=== PATIENT | female | born 1945 | race Caucasian/White ===

== ENCOUNTER 2016-10-29 07:00 | Inpatient (IN) | payer OTHER, MEDICARE ==
[~2016-10-29] VITALS: Ht 149.9 cm; Wt 63.2 kg
[2016-12-03] MEDS ORDERED: WELLBUTRIN XL300 M2 PO (06:54)
[2016-12-03] MEDS ORDERED: LEXAPRO10 M1 PO (06:55)
[2016-12-03] MEDS ORDERED: vitamin b12 PO (06:56)
[2016-12-03] MEDS ORDERED: VITAMIN D1000 UNIT PO (06:56)
--- NOTE | 2016-12-03 15:03 | Admission Core Measures ---
Admission Meds I reviewed the following Meds: Current Medications Sig/Parveen Start time Last Medication Dose Stop Time Status Admin Cefazolin Sodium 1,000 MG Q8 12/03 2100 UNVr (Kefzol-Ancef Inj) 12/03 2200 Docusate Sodium 100 MG BID 12/03 220 UNVr (Colace) Nicotine 7 MG DAILY 12/04 1000 UNVr (Nicotine Cq) Omeprazole 20 MG DAILY AC 12/04 0700 UNVr (Prilosec) Ondansetron HCl 4 MG Q6P PRN 12/03 1500 UNVr (Zofran) Sodium Chloride 1,000 ML Q13H 12/03 1500 UNVr (Normal Saline 0.9%) Acute Coronary Syndrome Inclusion Criteria ACS Diagnosis No Inpatient Core Measures LDL Reminder: If No, please order W/I first 24hr of stay Congestive Heart Failure Inclusion Criteria CHF Diagnosis No Cerebrovascular accident Inclusion Criteria CVA/TIA Diagnosis No Inpatient Core Measures Bedside Swallow Eval Reminder: If BSE failed, place ST order Antithrombotic Reminder: Order Antithrombotic Medication by end of day 2 Antithrombotic Reminder: Document Reason Antithrombotic Not ordered by end of day 2 AFIB/Flutter Reminder: If Present, add to problem list AFIB/Flutter Reminder: Order Anticoag Medication for pts with AFIB/Flutter Atherosclerosis Reminder: If Present, add to problem list LDL Reminder: If No, please order W/I first 24hr of stay PT Order Reminder: If No, please order Venous thromboembolism Inpatient Core Measures VTE Risk Factors: Age > 40, Smoking VTE Prophylaxis Ordered Inpt [facility] prophylaxis d/t No contraindications No VTE Pharm Prophylaxis d/t No contraindications Inclusion Criteria - Per Current guidelines, there needs to be overlap - treatment for the first 5 days of Warfarin therapy. - Parenteral Anticoagulation (IV or SC) needs to be - given along with Warfarin therapy. VTE Diagnosis No VTE Type NONE VTE Confirmed by (Test) NONE Problem List As ranked by this Provider includes Assessment & Plan 1. Lung nodules HOME MEDS Home Med List Bupropion HCl (Wellbutrin XL) 300 MG TAB.ER.24H 1 TAB PO DAILY unknown ( Reported) Cholecalciferol (Vitamin D3) (Vitamin D) 1,000 UNIT TABLET 1 TAB PO DAILY SUPPLEMENT (Reported) Escitalopram Oxalate (Lexapro) 10 MG TABLET 1 TAB PO DAILY unknown (Reported) [vitamin b12] 1 TAB PO D UNKNOWN (Reported)
--- NOTE | 2016-12-03 15:23 | Cons- CRCU ---
DOTNELI 12/03/16 1521: General Information and HPI Consulting Request Date of Consult: 12/03/16 Requested By: Dr. Magaña Reason for Consult: S/p Electromagnetic Navigation Bronchoscopy with atypical cells both RUL and RLL both suspicious for adenocarcinoma Source of Information: old records Exam Limitations: clinical condition History of Present Illness: 71 y/o female with a 40 pack year smoking hsitory, anxiety, depression, GERD admitted to the ICU s/p right thoracotomy with upper and lower lobe wedge resection for adenocarcinoma of lung on 12/03/16. She F/U with Dr. Thomson as an outpatient. Her last PFT's were in 05/2016 which showed DLCO 64 and FEV1 1.23L. A CT done on 08/05/16 reveals multiple mixed groundglass and solid parenchymal opacities. The majority of these opacities were stable from prior exam. However, the dominant mass in the right upper lobe has increased progressively in size. There are also multiple other bilateral groundglass, subsolid and solid pulmonary nodules remain stable. No adenopathy. Right hilar calcified lymph nodes suggest underlying granulomatous disease. Mild coronary artery calcifications. Cholelithiasis and diffuse bone demineralization. A PET CT done on the 08/26/16 showed mildly increased FDG activity in a medial RLL nodule is suspicious for malignancy, RUL shows only weak FDG activity. No additional abnormalities suspicious for metastatic or other malignant lesions were noted. According to office notes, patient was previously on BREO and had to stop secondary to throat irritation. She is curerntly a little drowsy, but arousable and c/o nausea. Denies fever, chills, but does admit to pain at the site of surgery. Denies headache, abdominal pain. CRCU consult is beging requested to monitor her respiratory status post surgery. Allergies/Medications Allergies: Coded Allergies: Penicillins (HIVES 11/14/16) Home Med List: Esomeprazole (Nexium) 40 MG CAPSULE. 1 CAP PO DAILY reflux (Reported) Current Medications: Current Medications Sig/Parveen Start time Last Medication Dose Route Stop Time Status Admin Bupropion HCl 300 MG DAILY 12/04 1000 UNVr PO Cefazolin Sodium 1,000 MG Q8 12/03 2100 AC IV 12/03 2200 Docusate Sodium 100 MG BID 12/03 2199 AC PO Escitalopram Oxalate 10 MG DAILY 12/04 1000 UNVr PO Hydromorphone HCl 50 MG Q24H PRN 12/03 1515 AC Sodium Chloride 45 ML IV Nicotine 7 MG DAILY 12/04 1000 AC TOP Omeprazole 20 MG DAILY AC 12/04 0700 AC PO Ondansetron HCl 4 MG Q6P PRN 12/03 1500 AC IV Sodium Chloride 1,000 ML Q13H 12/03 1500 AC IV Review of Systems Review of Systems Constitutional: Denies: chills, fever. EENTM: Denies: visual changes. Cardiovascular: Reports: chest pain. Denies: orthopena, palpitations, peripheral edema. Respiratory: Denies: cough, hemoptysis, short of breath, sputum production, wheezing. GI: Reports: nausea. Denies: abdominal pain, constipation, diarrhea, vomiting. Genitourinary: Reports: no symptoms. Neurological/Psychological: Denies: headache, numbness, tingling, tremors. Past History Medical History EENT: BILATERAL HEARING AID Gastrointestinal: GERD, CHOLELETIHASIS Psychiatric: anxiety, depression Surgical History Surgical History: RIGHT FATTY TUMOR REMOVED FROM RIGHT BREAST Family History Relations & Conditions If Any: FATHER FH: throat cancer Psychosocial History Smoking Status: Former Smoker (40 pack year) Employment History Employment: Unemployed Exam & Diagnostic Data Last 24 Hrs of Vital Signs/I&O Vital Signs Date Time Temp Pulse Resp B/P Pulse O2 O2 Flow FiO2 Ox Delivery Rate 12/03 1700 98.5 78 20 102/54 98 Nasal 4.0L Cannula Physical Exam General Appearance: awake, drowsy but arousable nad oriented x3 Head: atraumatic, normal appearance Eyes: Bilateral: PERRL, EOMI. Ears, Nose, Throat: hard of hearing bilatrally L>>R Neck: normal inspection, supple Respiratory: decreased breath sounds (bilaterally), has a chest drain in place with blood discharge and to low wall suction Cardiovascular: regular rate/rhythm, has wound dressing in place on the right side. Chest tube drain in place. Peripheral Pulses: 2+ radial (R), 2+ radial (L), 2+ femoral (R), 2+ femoral (L) Gastrointestinal: soft, non-tender, hypoactive bowel sounds Extremities: no edema Last 48 Hrs of Labs/Ney: None Diagnostic Data CXR Results SERVICE DATE: 12/03/16-1450 EXAM TYPE: RAD - XRY-PORTABLE CHEST XRAY EXAMINATION: XR PORTABLE CHEST CLINICAL INFORMATION: Status post right lung thoracotomy. Evaluate for pneumothorax. COMPARISON: 09/17/2016 TECHNIQUE: Portable view of the chest was obtained. FINDINGS: Cardiac silhouette is within normal limits. A right-sided chest tube is noted with tip projecting at the right lung apex. No definite pneumothorax is identified. New opacity is noted within the right upper lobe adjacent to the superior mediastinum, possibly related to recent surgery. There is probable underlying emphysema. No definite pleural effusions. No acute osseous abnormality. Minimal subcutaneous emphysema noted along the right lateral chest. IMPRESSION: Right-sided chest tube with tip projecting at the right lung apex. No definite pneumothorax identified. New, medial right upper lung zone opacity. Assessment/Plan Impression/Plan: 71-year-old woman who is admitted to the ICU post right lung thoracotomy and resection of right upper and right lower lobe lesions that were suspicious for adenocarcinoma. Assessment and Plan: Respiratory - Adenocarcioma s/p resection RUL/RLL, mediastinal lymph node resection, was not a candidate for pneumonectomy - Currently saturating 98% on 3.0 liters of O2 via nasal cannula - Incentive spirometry - Follow post thoracotomy protocol. - Chest tube draining blood, about 10mls, to low wall suction as per thoracic surgery recs - F/U pathology - Incentive spirometry - TRC/ Nebs - Optimize pain control - Post op CXR does not show evidence of Pneumothorax and chest tube drain is in place. - Continue to monitor for signs of respiratory distress - ID - No active signs of infection for now - Continue to monitor CBC, vitals - Cardiovascular - Currently stable. - Hematology - No active issues - ALimentary - Start her on ice chips and advance to clears as per thoracic surgery recs. # Incidental finding of cholilithiasis - No signs of active inflammation/ infection at this point - Neurological - Anxiety - Consider Ativan 0.5mg Q6 PRN PO if she gets anxious. - DVT - On ALPs - Code status - Full Code. Consult Acknowledgment - Thank you for your consult request. STEVO THOMSON MD 12/03/16 1532: Assessment/Plan Other Findings/Comments: Stevo Rivera M.D. have examined this patient, reviewed available EMR data, personally reviewed images, discussed with resident/PA/INSURANCE CONSULTANT, discussed management plan with housestaff and nursing staff, discussed managment plan all of healthcare providers, discussed management plan with patient and/or family, agreed with resident/PA/INSURANCE CONSULTANT. The past history and parts of the chart have been autopopulated. Gen - recovering from anesthesia HEENT - ncat/hearing aides/hearing loss chronic CVS - s1, s2 Lungs - some transmitted rhonchi bilaterally Abd - soft, bs+ Ext - without edema Impression 71-year-old woman admitted to the ICU post right lung thoracotomy and resection of right upper and right lower lobe lesions that were suspicious for adenocarcinoma. [id number] history of cigarette smoking. Sequence of events: S/p Electromagnetic Navigation Bronchoscopy. Atypical cells both RUL and RLL both suspicious for adenocarcinoma. PET results 08/26/16 -Mildly increased FDG activity in a medial RLL nodule is suspicious for malignancy -RUL shows only weak FDG activity. Additional opacities o the CT images show no abnormal FDG activity -No additional abnormalities suspicious for metastatic or other malignant lesions are noted. -Cholelithiasis. -Vascular calcifications including coronary. CT 08/05/16 -Multiple mixed groundglass and solid parenchymal opacities are again seen in the lungs as discussed above. The majority of these opacities remain stable from prior exam. However, the dominant mass in the right upper lobe has increased progressively in size. -Multiple other bilateral groundglass, subsolid and solid pulmonary nodules remain stable. -No adenopathy. Right hilar calcified lymph nodes suggest underlying granulomatous disease. -Mild coronary artery calcifications. -Cholelithiasis. -Diffuse bone demineralization Previously on BREO and had to stop secondary to throat irritation. PFTs reviewed 05/2016 DLCO 64 and FEV1 1.23L. Worked at [employer] in the past. Significant smoking history. Smoked 1PPD since age 18. Father from throat cancer. Patient seen and examined in the PACU post surgery and is awake and comfortable, however still recovering from anesthesia. Normal weight and appetite. History of hearing loss and significant anxiety. Sees Dr. Rosales for sinus issues and ear issues. Has been having a dry cough with clearing, no phlegm. Some difficulty swallowing pills, no obvious aspiration, GERD. Plan - s/p resection RUL/RLL, mediastinal lymph node resection, was not a candidate for pneumonectomy - post thoracotomy protocol - f/u pathology - TRC/Nebs - incentive spirometry - chest tube drainage per cardiothoracic surgery - pain control - monitor bowel function and ins/outs - patient has anxiety and anxioloysis maybe necessary - DVT prophylaxis at all times TTS 40 minutes Consult Acknowledgment - Thank you for your consult request.
--- NOTE | 2016-12-03 15:33 | RADIOLOGY REPORT ---
EXAMINATION: XR PORTABLE CHEST CLINICAL INFORMATION: Status post right lung thoracotomy. Evaluate for pneumothorax. COMPARISON: 09/17/2016 TECHNIQUE: Portable view of the chest was obtained. FINDINGS: Cardiac silhouette is within normal limits. A right-sided chest tube is noted with tip projecting at the right lung apex. No definite pneumothorax is identified. New opacity is noted within the right upper lobe adjacent to the superior mediastinum, possibly related to recent surgery. There is probable underlying emphysema. No definite pleural effusions. No acute osseous abnormality. Minimal subcutaneous emphysema noted along the right lateral chest. IMPRESSION: Right-sided chest tube with tip projecting at the right lung apex. No definite pneumothorax identified. New, medial right upper lung zone opacity.
[2016-12-03 17:00] VITALS: BP 102/54
--- NOTE | 2016-12-03 17:00 | PN- Thoracic Surgery ---
Subjective Subjective: The patient was seen this evening postoperatively. She reports her pain is under adequate control and is liquids the current time. She denies any chest pain, difficulty breathing, or palpitations. Objective Vital Signs and I&Os Vital signs: Blood pressure 112/74, pulse 76, temperature 98.7, O2 saturation 97 % on 3 L via nasal cannula Postoperative chest x-ray: Shows no pneumothorax with a chest tube in adequate position Physical Exam: Gen.: Sleepy but easily arousable and in no obvious distress Skin: Warm and dry Chest: Incisional tenderness, equal expansion, surgical dressing is blood-tinged but otherwise intact, chest tube 1 to Pleur-evac suction without a air leak Cardiac: S1-S2 regular Pulmonary: Bilateral breath sounds are equal and diminished at bases with transmitted chest tube sounds in the right chest. Extremities: Bilateral lower extremities are warm without calf tenderness or significant edema. Assessment/Plan Assessment/Plan Assessment: 71-year-old female status post right thoracotomy with upper and lower lobe wedge resection. Postoperatively the patient is progressing as expected, her pain is under adequate control, and she is oxygenating adequately on minimal oxygen requirements. Plan: Follow-up a.m. laboratory results and chest x-ray. Continue IV fluids and clear liquid diet tonight Advance diet in the morning if stable and Hep-Lock IV fluids Resume all medications GI and DVT prophylaxis Continue current pain regiment Total respiratory care per post thoracotomy protocol Follow-up pulmonary critical care recommendations 2 doses of postoperative prophylactic antibiotics Core Measures/Miscellaneous Venous Thromboembolism VTE Risk Factors: Age > 40, Smoking, Surgery VTE Contraindications: No Contraindications VTE Prophylaxis Ordered Inpt: Mech & Pharm VTE Diagnosis: No VTE Type: NONE VTE Confirmed by (Test): NONE Beta Vani Is Beta Vani a Home Med? No Antibiotics Is Patient on Antibiotics? Yes If Yes: prophylaxis
--- NOTE | 2016-12-03 17:28 | Admission Certification ---
Admission Certification Certification Statement - As attending physician, I certify that at the time of - admission, based on clinical presentation, severity of - symptoms, need for further diagnostic testing and - therapeutic interventions, and risk of adverse outcomes - without in-hospital treatment, in my clinical assessment, - this patient requires an acute hospital stay for a minimum - of two nights or longer. I have also considered psychsocial - factors such as support system, advanced age, financial - issues, cognitive issues, and failed out-patient treatments, - past re-admission history, safety of patient, and lack of - compliance as applicable. Specific rationale supporting this admission is: Christopher. chest surgery requiring intensive care unit stay
--- NOTE | 2016-12-03 17:31 | Operative Report ---
Operative/Inv Procedure Report Surgery Date: 12/03/16 Name of Procedure: Right thoracotomy with wedge resection right upper lobe and right lower lobe lung nodules. Mediastinal lymph node dissection Pre-Operative Diagnosis: Right upper and right lower lobe lung nodule suspicious for carcinoma Post-Operative Diagnosis: Same Estimated Blood Loss: less than 50ml Surgeon/Toll Bridge Attendant: MICHAEL ALVES,ADRIANO Brown JR Anesthesia: general endotracheal tube Operative/Procedure Note Note: After placement of monitoring lines and induction of general anesthesia the double-lumen endotracheal tube was properly positioned with fiberoptic bronchoscopy. The patient was placed in the left lateral decubitus position and her right chest was prepped and draped in a sterile fashion. A posterior lateral thoracotomy incision was made and the chest was entered through the fifth intercostal space. There was complete development of all the fissures with clear separation of all 3 lobes. The upper lobe lesion along the posterior segment of the lung was resected with multiple applications of the Endo RANDOLPH stapler and sent for permanent histology. Similarly the lower lobe nodule which was adjacent to the pulmonary vein was resected and sent for permanent histology. The inferior pulmonary ligament was mobilized and lymph nodes were obtained from levels 47 and 9 and sent for permanent histology. Long-acting Marcaine blocks were done intercostal. The suture lines were sprayed with Pro seal sealant. The chest was drained with a straight 28 Tajik chest tube. The ribs were reapproximated with pericostal suture and the lung was reinsufflated under direct vision. Incision was then closed anatomically with running Vicryl suture followed by running Vicryl subcuticular suture. The patient tolerated procedure well and was brought to the recovery room awake and extubated in stable condition.
[2016-12-03] MEDS ORDERED: NEXIUM40 M1 PO (17:34)
[2016-12-03 18:38] VITALS: BP 106/61
[2016-12-03 20:00] VITALS: BP 102/62
[2016-12-03 22:00] VITALS: BP 119/71
--- NOTE | 2016-12-03 22:16 | NUR ---
PT URINE OUTPUT FROM [id number] 150ML. IVF INFUSING A 75ML/HR, PT TAKING IN PO BUT C/O BOUTS OF NAUSEA. PT ALSO COMPLAINING OF SEVERE PAIN, EDUCATED PT AGAIN ON HOW TO USE HEALTH CONSULTANT PUMP. PT ONLY HIT BUTTON ONCE IN 2 HOURS FOR TOTAL OF 0.1MG. PT VERBALIZED UNDERSTANDING. NOTIFIED NEVAEH GARCIA #[id number] OF ABOVE. ADDITIONAL TORADOL ORDERED PRN.
[2016-12-04] VITALS: BP 104/64
[2016-12-04 02:00] VITALS: BP 100/57
[2016-12-04 03:49] LABS: ABSOLUTE BASOPHIL COUNT 0 /CUMM (0.0-0.2); ABSOLUTE EOSINOPHIL COUNT 0 /CUMM (0.0-0.7); ABSOLUTE GRANULOCYTE CT 12.1 /CUMM (1.4-6.5); ABSOLUTE LYMPH COUNT 0.5 /CUMM (1.2-3.4); ABSOLUTE MONOCYTE COUNT 0.3 /CUMM (0.10-0.60); BASOPHIL % 0.1 % (0.0-2.0); EOSINOPHIL % 0 % (0-5); GRANULOCYTE % 93.2 % (42.2-75.2); MEAN CORPUSCULAR HGB 29.5 PG (27.0-31.0); MEAN CORPUSCULAR HGB CONC 33.5 G/DL (33.0-37.0); MEAN CORPUSCULAR VOLUME 88.1 FL (81.0-99.0); MEAN PLATELET VOLUME 8.4 FL (7.4-10.4); PLATELET COUNT 325 /CUMM (130-400); RBC DISTRIBUTION WIDTH 14.1 % (11.5-14.5); RED BLOOD CELL CT 4.42 /CUMM (4.20-5.40); WHITE BLOOD CELL COUNT 12.9 /CUMM (4.8-10.8)
[2016-12-04 04:00] VITALS: BP 112/52
--- NOTE | 2016-12-04 05:31 | PN- Thoracic Surgery ---
Subjective Subjective: The patient seen this morning postoperatively day #1. She is complaining of significant pain from around the chest tube. She has no other complaints at the current time he denies any chest pain or difficulty breathing. Objective Vital Signs and I&Os Vital Signs Date Time Temp Pulse Resp B/P Pulse O2 O2 Flow FiO2 Ox Delivery Rate 12/040 98.4 84 17 112/52 12/04 0400 97 Nasal 2.0L Cannula 12/04 0200 97.2 76 21 100/57 12/04 0040 96 Nasal 2.0L Cannula 12/04 0000 97 Nasal 2.0L Cannula 12/04 0000 97.6 79 24 104/64 97 Nasal 2.0L Cannula 12/03 220 98.0 74 23 119/71 12/03 1999 98.0 73 22 102/62 12/03 1999 98 Nasal 3.0L Cannula 12/03 1908 Nasal 3.0L Cannula 12/03 1838 98.5 73 22 106/61 12/03 1700 98 Nasal 4.0L Cannula 12/03 1700 98.5 78 20 102/54 98 Nasal 4.0L Cannula Intake & Output 12/04 0800 12/04 0000 12/03 1600 12/03 0800 12/03 0000 12/02 1600 Intake Total 441 Output Total 188 Balance 253 Intake, IV 291 Intake, Oral 150 Output, Chest 38 Tube Drainage Output, Urine 150 Patient 130 lb Weight Physical Exam: Gen.: Alert and in obvious distress Skin: Warm and dry Chest: Equal expansion, surgical dressing is blood-tinged and the drain sponge around the chest tube is bloody. The chest tube is connected to a Pleur-evac and suction and has no leak Cardiac: S1-S2 regular Pulmonary: Bilateral breath sounds are equal and diminished at bases with slight expiratory wheezing Extremities: Bilateral lower extremities are warm without calf tenderness Assessment/Plan Assessment/Plan Assessment: 71-year-old female status post right thoracotomy with upper and lower lobe wedge resections postoperative day #1. The patient is progressing as expected and her pain is under tolerable control Plan: Follow-up morning chest x-ray and laboratory studies If there is no pneumothorax the patient be placed to [facility] Total respiratory care per postthoracotomy protocol Hep-Lock IV fluids, DC Morales, and remove a line Out of bed to chair Continue current pain regiment GI and DVT prophylaxis Follow-up pulmonary critical care Core Measures/Miscellaneous Venous Thromboembolism VTE Risk Factors: Age > 40, Smoking, Surgery VTE Contraindications: No Contraindications VTE Prophylaxis Ordered Inpt: Mech & Pharm VTE Diagnosis: No VTE Type: NONE VTE Confirmed by (Test): NONE Beta Vani Is Beta Vani a Home Med? No Antibiotics Is Patient on Antibiotics? No
[2016-12-04 06:00] VITALS: BP 116/62
--- NOTE | 2016-12-04 08:06 | PN- Resident CRCU ---
Subjective HPI/CRCU Issues: 1. Adenocarcioma s/p resection RUL/RLL, mediastinal lymph node resection 2. Chest tube in place. 24 Hour Events: I have seen and examined the patient today morning. She is taking her breakfast comfortably but very tearful about her pain. Still on chest drain in place with dilaudid drip. Otherwise no significant events overnight. Objective Vital Signs & I&O Last 8 Hrs of Vitals and I&O: VS Afebrile HR 65-90bpm BP 100-110/60-70mmHg On 2L NC. Exam General Appearance: alert, awake, anxious, tearful. Head: atraumatic, normal appearance Ears, Nose, Throat: normal pharynx, normal ENT inspection, hearing grossly normal, abnormal Tympanic (R) Neck: normal inspection, supple Respiratory: normal breath sounds, no respiratory distress, quiet respiration, dressing evident below the right breast, no erythema/swelling. Cardiovascular: regular rate/rhythm, normal peripheral pulses Gastrointestinal: normal bowel sounds, soft, non-tender Extremities: normal inspection, normal capillary refill Cranial Nerves: normal hearing, normal speech, PERRL Skin: intact, incision dressed well near the right lung base region IV Drips IV Drips: Dilaudid Nutrition Nutrition: P.O. diet Current Medications: Current Medications Sig/Parveen Start time Last Medication Dose Route Stop Time Status Admin Albuterol Sulfate 3 ML Q4 12/03 2200 AC 12/04 INH 1302 Bupropion HCl 300 MG DAILY 12/04 1000 CAN PO Cefazolin Sodium 1,000 MG 0500 12/04 0500 DC 12/04 IV 12/04 0501 0550 Cefazolin Sodium 1,000 MG Q8 12/03 2100 DC 12/03 IV 12/03 2201 2057 Docusate Sodium 100 MG BID 12/03 220 AC 12/04 PO 0917 Escitalopram Oxalate 10 MG DAILY 12/04 1000 CAN PO Heparin Sodium 5,000 UNIT Q8 12/03 220 AC 12/04 (Porcine) SC 0551 Hydromorphone HCl 50 MG Q24H PRN 12/03 1515 AC 12/03 Sodium Chloride 45 ML IV 1836 Ketorolac 15 MG Q8P PRN 12/03 2215 AC 12/04 Tromethamine IV 0826 Lorazepam 0.5 MG Q6 PRN 01/13 0915 AC 12/04 PO 12/11 0914 1042 Magnesium Oxide 400 MG ONE ONE 12/04 0745 DC 12/04 PO 12/04 0746 1042 Nicotine 7 MG DAILY 12/04 1000 AC 12/04 TOP 0917 Omeprazole 20 MG DAILY AC 12/04 0700 AC 12/04 PO 0555 Omeprazole 40 MG DAILY AC 12/04 0700 CAN PO Ondansetron HCl 4 MG .STK-MED ONE 12/04 0041 DC IM 12/04 0042 Ondansetron HCl 4 MG Q6P PRN 12/03 1500 AC 12/04 IV 0044 Sodium Chloride 1,000 ML Q13H 12/03 1500 AC 12/03 IV 1835 CXR Findings: IMPRESSION: A pneumothorax is not present. Impression/Plan Impression/Problem List Impression: 71 y/o female with a 40 pack year smoking hsitory, anxiety, depression, GERD admitted to the ICU s/p right thoracotomy with upper and lower lobe wedge resection for adenocarcinoma of lung on 12/03/16. Currently appears more stable, able to move from bed to chair and eat well. Problem List: 1. Lung nodules 2. S/P lobectomy of lung Pain Ratin Pain Location: right chest wall Pain Goal: Pain 4 or less Tomorrow's Labs & Rationales: ICU bundle CBC Plan Respiratory: s/p resection RUL/RLL and mediastinal lymph node resection * Currently stable on 2L of oxygen * Post thoracotomy protocol. * On chest drain with 90ml suction so far. * TRC and nebs along with incentive spirometry. * Pain control with dilaudid currently * F/U pathology. 40 Year smoking history * On nicotine patch. Infectious Diseases: * received antibiotics prophylactically with cefazoline 1gm IV twice. Cardiovascular: Stable. Hematology: Leukocytosis * Mild elevation of white count of 12 - reactive. * will monitor Metabolic: stable Alimentary: * Nausea present postprocedure * On regular diet today - tolerating well. Neurological: intact and stable. Skin: * Incision well dressed. DVT/Prophylaxis: pharmacological, SC heparin Code Status: Full Code
--- NOTE | 2016-12-04 08:57 | PN- CRCU ---
Subjective HPI/Critical Care Issues: pt seen and examined tolerated sx well no cp no n/v/d/c post operative pain Objective Current Medications: Current Medications Sig/Parveen Start time Last Medication Dose Route Stop Time Status Admin Albuterol Sulfate 3 ML Q4 12/03 2200 AC 12/04 INH 0850 Bupropion HCl 300 MG DAILY 12/04 1000 CAN PO Cefazolin Sodium 1,000 MG 0500 12/04 0500 DC 12/04 IV 12/04 0501 0550 Cefazolin Sodium 1,000 MG Q8 12/03 2100 DC 12/03 IV 12/03 220 2057 Dexamethasone 4 MG .STK-MED ONE 12/03 1129 DC IM 12/03 1130 Docusate Sodium 100 MG BID 12/03 2199 AC PO Escitalopram Oxalate 10 MG DAILY 12/04 1000 CAN PO Fentanyl Citrate 250 MCG .STK-MED ONE 12/03 1128 DC IM 12/03 1129 Heparin Sodium 5,000 UNIT Q8 12/030 AC 12/04 (Porcine) SC 0551 Hydromorphone HCl 50 MG Q24H PRN 12/03 1515 AC 12/03 Sodium Chloride 45 ML IV 1836 Hydromorphone HCl 2 MG .STK-MED ONE 12/03 1127 DC IM 12/03 1128 Ketorolac 15 MG Q8P PRN 12/03 2215 AC 12/04 Tromethamine IV 0826 Magnesium Oxide 400 MG ONE ONE 12/04 0745 DC PO 12/04 0746 Midazolam HCl 2 MG .STK-MED ONE 12/03 1128 DC IM 12/03 1129 Nicotine 7 MG DAILY 12/04 1000 AC TOP Omeprazole 20 MG DAILY AC 12/04 0700 AC 12/04 PO 0555 Omeprazole 40 MG DAILY AC 12/04 0700 CAN PO Ondansetron HCl 4 MG .STK-MED ONE 12/04 0041 DC IM 12/04 0042 Ondansetron HCl 4 MG Q6P PRN 12/03 1500 AC 12/04 IV 0044 Sodium Chloride 1,000 ML Q13H 12/03 1500 AC 12/03 IV 1835 Vital Signs & I&O Last 24 Hrs of Vitals and I&O: Vital Signs Date Time Temp Pulse Resp B/P Pulse O2 O2 Flow FiO2 Ox Delivery Rate 12/04 0600 98.2 80 26 116/62 12/04 0400 98.4 84 17 112/52 12/04 0400 97 Nasal 2.0L Cannula 12/04 0200 97.2 76 21 100/57 12/04 0040 96 Nasal 2.0L Cannula 12/04 0000 97 Nasal 2.0L Cannula 12/04 0000 97.6 79 24 104/64 97 Nasal 2.0L Cannula 12/03 2200 98.0 74 23 119/71 12/03 1999 98.0 73 22 102/62 12/03 1999 98 Nasal 3.0L Cannula 12/03 1908 Nasal 3.0L Cannula 12/03 1838 98.5 73 22 106/61 12/03 1700 98 Nasal 4.0L Cannula 12/03 1700 98.5 78 20 102/54 98 Nasal 4.0L Cannula Intake & Output 12/04 1600 12/04 0800 12/04 0000 Intake Total 841 441 Output Total 224 188 Balance 617 253 Intake, IV 616 291 Intake, Oral 225 150 Number 0 Bowel Movements Output, Chest 24 38 Tube Drainage Output, Urine 200 150 Patient 130 lb Weight Exam Other Physical Findings: Gen - alert and awake HEENT - ncat/hearing aides/hearing loss chronic CVS - s1, s2 Lungs - some transmitted rhonchi bilaterally Abd - soft, bs+ Ext - without edema Results Last 24 Hrs of Lab Results: Laboratory Tests 12/04/16 0422: Anion Gap 12, Estimated GFR > 60, BUN/Creatinine Ratio 24.0, Phosphorus 4.2, Magnesium 1.9 12/04/16 0337: CBC w Diff NO MAN DIFF REQ, RBC 4.42, MCV 88.1, MCH 29.5, RDW 14.1, MPV 8.4, Gran % 93.2 H, Lymphocytes % 4.0 L, Monocytes % 2.7, Eosinophils % 0, Basophils % 0.1, Absolute Granulocytes 12.1 H, Absolute Lymphocytes 0.5 L, Absolute Monocytes 0.3, Absolute Eosinophils 0, Absolute Basophils 0, PUBS MCHC 33.5 Impression/Plan Impression/Plan Impression/Plan: Impression 71-year-old woman admitted to the ICU post right lung thoracotomy and resection of right upper and right lower lobe lesions that were suspicious for adenocarcinoma. [id number] history of cigarette smoking. Sequence of events: S/p Electromagnetic Navigation Bronchoscopy. Atypical cells both RUL and RLL both suspicious for adenocarcinoma. PET results 08/26/16 -Mildly increased FDG activity in a medial RLL nodule is suspicious for malignancy -RUL shows only weak FDG activity. Additional opacities o the CT images show no abnormal FDG activity -No additional abnormalities suspicious for metastatic or other malignant lesions are noted. -Cholelithiasis. -Vascular calcifications including coronary. CT 08/05/16 -Multiple mixed groundglass and solid parenchymal opacities are again seen in the lungs as discussed above. The majority of these opacities remain stable from prior exam. However, the dominant mass in the right upper lobe has increased progressively in size. -Multiple other bilateral groundglass, subsolid and solid pulmonary nodules remain stable. -No adenopathy. Right hilar calcified lymph nodes suggest underlying granulomatous disease. -Mild coronary artery calcifications. -Cholelithiasis. -Diffuse bone demineralization Previously on BREO and had to stop secondary to throat irritation. PFTs reviewed 05/2016 DLCO 64 and FEV1 1.23L. Worked at [employer] in the past. Significant smoking history. Smoked 1PPD since age 18. Father from throat cancer. Patient seen and examined in the PACU post surgery and is awake and comfortable, however still recovering from anesthesia. Normal weight and appetite. History of hearing loss and significant anxiety. Sees Dr. Rosales for sinus issues and ear issues. Has been having a dry cough with clearing, no phlegm. Some difficulty swallowing pills, no obvious aspiration, GERD. Plan - s/p resection RUL/RLL, mediastinal lymph node resection, was not a candidate for pneumonectomy - post thoracotomy protocol - f/u pathology - TRC/Nebs - incentive spirometry - chest tube drainage per cardiothoracic surgery - pain control - monitor bowel function and ins/outs - patient has anxiety and anxioloysis maybe necessary - DVT prophylaxis at all times TTS 35 minutes
--- NOTE | 2016-12-04 09:03 | RADIOLOGY REPORT ---
EXAMINATION: XR PORTABLE CHEST CLINICAL INFORMATION: Status post right lung thoracotomy and pneumothorax. COMPARISON: Yesterday. TECHNIQUE: Portable view of the chest was obtained. Film is taken in expiration. FINDINGS: Chest tube continues to be present on the right with its tip projecting over the right apex. No pneumothorax is seen. Lung volumes are low. This is, presumably, secondary to expiration. Left basilar atelectasis or scarring is present. Increased interstitial opacities may be secondary to the to the expiratory nature of the film. A small amount of subcutaneous air in the right chest persists. The opacity previously mentioned in the right paratracheal region appears less prominent on today's study. IMPRESSION: A pneumothorax is not present.
--- NOTE | 2016-12-04 12:17 | RADIOLOGY REPORT ---
EXAMINATION: XR PORTABLE CHEST CLINICAL INFORMATION: Interval water seal status post thoracotomy. COMPARISON: Earlier today at 6:42 a.m. TECHNIQUE: Portable view of the chest was obtained. FINDINGS: Chest tube is again noted at the right apex and no pneumothorax is seen. Heart size is normal. There is no evidence of CHF. IMPRESSION: No pneumothorax is seen.
--- NOTE | 2016-12-04 14:15 | Event Note ---
Event Note Event Note: chest tube placed to waterseal this morning with no ptx seen on f/u cxr chest tube removed without difficulty. patient tolerated well. f/u cxr in am will d/w
[2016-12-04 16:00] VITALS: BP 118/58; BP 91/53
[2016-12-05] VITALS: BP 98/42
[2016-12-05 05:33] LABS: ABSOLUTE BASOPHIL COUNT 0.1 /CUMM (0.0-0.2); ABSOLUTE EOSINOPHIL COUNT 0 /CUMM (0.0-0.7); MEAN CORPUSCULAR HGB 29.6 PG (27.0-31.0)
[2016-12-05 05:39] LABS: ABSOLUTE GRANULOCYTE CT 6.9 /CUMM (1.4-6.5); ABSOLUTE LYMPH COUNT 2.5 /CUMM (1.2-3.4); ABSOLUTE MONOCYTE COUNT 0.5 /CUMM (0.10-0.60); BASOPHIL % 0.6 % (0.0-2.0); EOSINOPHIL % 0.2 % (0-5); GRANULOCYTE % 68.4 % (42.2-75.2); MEAN CORPUSCULAR HGB CONC 33.8 G/DL (33.0-37.0); MEAN CORPUSCULAR VOLUME 87.6 FL (81.0-99.0); MEAN PLATELET VOLUME 8.8 FL (7.4-10.4); PLATELET COUNT 278 /CUMM (130-400); RED BLOOD CELL CT 3.83 /CUMM (4.20-5.40)
[2016-12-05 05:42] LABS: HEMATOCRIT 33.8 % (37-47)
--- NOTE | 2016-12-05 05:59 | PN- Thoracic Surgery ---
Subjective Subjective: DOING WEEL THIS AM SITING UP IN CHAIR BETTER PAIN CONTROL LIQUID VICODIN NO MAJOR COMPLAINTS AT THIS TIME Objective Vital Signs and I&Os Vital Signs Date Time Temp Pulse Resp B/P Pulse O2 O2 Flow FiO2 Ox Delivery Rate 12/05 0100 96 Room Air 12/05 0000 95 Room Air 12/05 0000 98.1 76 18 98/42 95 Room Air 12/04 2030 97 Room Air 12/04 1610 96 Room Air 12/04 1600 99.4 76 20 118/58 97 Room Air 12/04 1200 97 Ventilator 35% 12/04 0913 96 Nasal 2.0L Cannula 12/04 08 96 Nasal 2.0L Cannula 12/04 06 98.2 80 26 116/62 Intake & Output 12/05 0800 12/05 0000 12/04 1600 12/04 0800 12/04 0000 12/03 1600 Intake Total 570 672 841 441 Output Total 800 420 224 188 Balance -230 252 617 253 Intake, IV 40 272 616 291 Intake, Oral 530 400 225 150 Number 0 0 Bowel Movements Output, Chest 20 24 38 Tube Drainage Output, Urine 800 400 200 150 Patient 130 lb Weight Physical Exam: CV; RRR LUNGS: CLEAR, SOME CRACKLESIN BASES ABD: SOFT, +BS EXT: WARM, NO EDEMA TRUNK: DRSG REMAINS DRY SMALL INCISIONAL HEMATOMA. Assessment/Plan Assessment/Plan THORACIC SURGERY STABLE PLAN F/U AM CXR IF STABLE WILL TRANSFER TO FLOOR HOME D/C PLANNING Core Measures/Miscellaneous Venous Thromboembolism VTE Risk Factors: Age > 40, Smoking, Surgery VTE Contraindications: No Contraindications VTE Prophylaxis Ordered Inpt: Mech & Pharm VTE Diagnosis: No VTE Type: NONE VTE Confirmed by (Test): NONE Beta Vani Is Beta Vani a Home Med? No Antibiotics Is Patient on Antibiotics? No
--- NOTE | 2016-12-05 06:00 | NUR ---
PT A/Ox3 OOB WITH SUPERVISION. PT PAIN 05/01- HYDROCET GIVEN WITH GOOD RESULTS. PT AMBULATED AROUND ROOM. PT ON ROOM AIR, OOB TO CHAIR. PT HAS DRESSING TO RIGHT FLANK WITH MODERATE SEROSANGOUS DRESSING. DRESSING DRY AND INTACT. PT CURRENTLY SITTING IN CHAIR COMFORTABLY. WILL CONTINUE TO MONITOR.
--- NOTE | 2016-12-05 07:41 | RADIOLOGY REPORT ---
EXAMINATION: XR PORTABLE CHEST CLINICAL INFORMATION: Postop right thoracotomy with upper and lower wedge resection. COMPARISON: December 04, 2016 and studies dating back to February 10, 2016 TECHNIQUE: Portable view of the chest was obtained. FINDINGS: No significant abnormality is noted involving the heart, lungs, mediastinum, bony thorax or soft tissues. Surgical clips in the right medial lung noted. There may be a tiny right pneumothorax versus lack of visualized vessels above the right third rib. True pleural line of pneumothorax is not identified. IMPRESSION: No significant abnormality identified.
[2016-12-05 08:08] VITALS: BP 104/54
[2016-12-05] MEDS ORDERED: HYDROCODON-ACET15 ML PO (08:23)
--- NOTE | 2016-12-05 08:25 | Patient Discharge Instructions ---
Discharge Instructions General Discharge Information You were seen/treated for: LUNG NODULES You had these procedures: RIGHT THORACOTOMY, WEDGE RESECTION X 2 Watch for these problems: INCREASED PAIN, REDNESS OR DRAINAGE FROM INCISIONS, TEMPERATURE GREATER THAN 101F, CHEST PAIN OR SHORTNESS OF BREATH No bath, but you may shower: Yes Special Instructions: REMOVE CHEST DRESSINGS TOMORROW AT 12PM. YOU MAY THEN SHOWER. AVOID BATHS, HOT TUBS OR SWIMMING. PAT INCISION DRY- DO NOT RUB IT WILL HURT. NO HEAVY LIFTING GREATER THAN 10 LBS OR STRENUOUS EXERCISE Diet Continue normal diet: Yes Activity Activity Self Limited: Yes Acute Coronary Syndrome Inclusion Criteria At DC or during hospital stay patient has or had the following: ACS DIAGNOSIS No Discharge Core Measures Meds if any: Prescribed or Continued at Discharge Meds if any: NOT Prescribed or Continued at Discharge Congestive Heart Failure Inclusion Criteria At DC or during hospital stay patient has or had the following: CHF DIAGNOSIS No Discharge Core Measures Meds if any: Prescribed or Continued at Discharge Meds if any: NOT Prescribed or Continued at Discharge Cerebrovascular accident Inclusion Criteria At DC or during hospital stay patient has or had the following: CVA/TIA Diagnosis No Discharge Core Measures Meds if any: Prescribed or Continued at Discharge Meds if any: NOT Prescribed or Continued at Discharge Venous thromboembolism Inclusion Criteria VTE Diagnosis No VTE Type NONE VTE Confirmed by (Test) NONE Discharge Core Measures - Per Current guidelines, there needs to be overlap - treatment for the first 5 days of Warfarin therapy. - If discharged on Warfarin prior to 5 days of - overlap therapy, the patient will need to be - assessed for post discharge needs including - *Post discharge parental anticoagulation - *Warfarin and/or parental anticoagulation education - *Follow up date to check INR post discharge At least 5 days overlap therapy as Inpatient No Meds if any: Prescribed or Continued at Discharge Note: Overlap Therapy is Warfarin and Anticoagulant Meds if any: NOT Prescribed or Continued at Discharge
--- NOTE | 2016-12-05 12:00 | PN- Pulmonary ---
Subjective HPI/Critical Care Issues: DOING WEEL THIS AM SITING UP IN CHAIR BETTER PAIN CONTROL LIQUID VICODIN NO MAJOR COMPLAINTS AT THIS TIME Objective Current Medications: Current Medications Sig/Parveen Start time Last Medication Dose Route Stop Time Status Admin Acetaminophen 500 MG Q4-6 PRN PRN 12/04 1500 AC 12/04 PO 2118 Acetaminophen/ 15 ML Q6P PRN 12/04 2230 AC 12/05 Hydrocodone Bitart PO 0531 Al Hydroxide/Mg 30 ML Q4-6 PRN PRN 12/04 1615 AC 12/04 Hydroxide PO 1621 Albuterol Sulfate 3 ML EVERY 4 HRS/AWAKE 12/05 1200 AC 12/05 INH 0845 Albuterol Sulfate 3 ML Q4 12/03 2200 DC 12/05 INH 0030 Docusate Sodium 100 MG BID 12/04 220 DC PO Docusate Sodium 100 MG BID 12/04 2200 AC 12/05 PO 0909 Docusate Sodium 100 MG BID 12/03 2200 DC 12/04 PO 0917 Heparin Sodium 5,000 UNIT Q8 12/030 AC 12/05 (Porcine) SC 0534 Hydromorphone HCl 1 MG Q2-3 HRS NEEDED.. 12/04 1500 DC IV Hydromorphone HCl 50 MG Q24H PRN 12/03 1515 DC 12/03 Sodium Chloride 45 ML IV 1836 Ketorolac 15 MG Q8P PRN 12/03 2215 AC 12/04 Tromethamine IV 1637 Lorazepam 0.5 MG Q6 PRN 12/04 0915 AC 12/04 PO 12/11 0914 1042 Nicotine 7 MG DAILY 12/04 1000 AC 12/05 TOP 0910 Omeprazole 20 MG DAILY AC 12/04 0700 AC 12/05 PO 0534 Ondansetron HCl 4 MG .STK-MED ONE 12/04 1608 DC IM 12/04 1609 Ondansetron HCl 4 MG Q6P PRN 12/03 1500 AC 12/04 IV 1611 Oxycodone/ 1 TAB Q4-6 PRN PRN 12/04 1500 DC Acetaminophen PO Oxycodone/ 2 TAB Q4-6 PRN PRN 12/04 1500 DC Acetaminophen PO Sodium Chloride 1,000 ML Q13H 12/03 1500 DC 12/03 IV 1835 Vital Signs & I&O Last 24 Hrs of Vitals and I&O: Vital Signs Date Time Temp Pulse Resp B/P Pulse O2 O2 Flow FiO2 Ox Delivery Rate 12/05 0848 95 Room Air Room Air 12/05 0808 95 Room Air 12/05 0808 98.2 90 20 104/54 94 Room Air 12/05 0100 96 Room Air 12/05 0000 95 Room Air 12/05 0000 98.1 76 18 98/42 95 Room Air 12/04 2030 97 Room Air 12/04 1610 96 Room Air 12/04 1600 99.4 76 20 118/58 97 Room Air 12/04 1200 97 Ventilator 35% Intake & Output 12/05 1600 12/05 0800 12/05 0000 Intake Total 240 570 Output Total 650 800 Balance -410 -230 Intake, IV 40 Intake, Oral 240 530 Number 0 Bowel Movements Output, Urine 650 800 Patient 139 lb 130 lb Weight Impression/Plan Impression/Plan Impression/Plan: DOING WEEL THIS AM SITING UP IN CHAIR BETTER PAIN CONTROL LIQUID VICODIN NO MAJOR COMPLAINTS AT THIS TIME S/p resection RUL/RLL, mediastinal lymph node resection, was not a candidate for pneumonectomy, doing well, chest tubes removed - f/u pathology - TRC/Nebs - incentive spirometry - pain control - monitor bowel function and ins/outs - DVT prophylaxis at all times Ok to dc
[2016-12-05] MEDS ORDERED: DOCUSATE SODIU100 M3 PO (12:13)
--- NOTE | 2016-12-05 14:15 | PN- Resident CRCU ---
Subjective HPI/CRCU Issues: Patient seen and examined. She is seen sitting upright in her chair at bedside resting comfortably. She appears to be in no acute distress. Her accompanies her at bedside and is up to date about her medical conidition and has no questions at this time. She reports that she can breath well on room and and other than minimal pain at the site where the chest tube was she has no complaints. Additionally she denies any headache, fever, chills, chest pain other than described, palpitations, shortness of breath, nausea, vomiting, diarrhea. No overnight events reported. Objective Vital Signs & I&O Last 8 Hrs of Vitals and I&O: Intake & Output 12/05 1600 Intake Total Output Total Balance Patient 63.163 kg Weight Vitals: - Temperature: 98.2 - Heart Rate: 90 - Respiratory Rate: 20 - Systolic Blood pressure: 104 - Diastolic Blood pressure: 54 - Oxygen Saturation: 94-96% on room air Exam General Appearance: well developed/nourished, no apparent distress, alert, awake , comfortable Other Physical Findings: General -well-developed, well-nourished elderly female in no acute distress HEENT - NCAT, PERRL, EOMI, anicteric sclera Cardio/chest - S1, S2 w/o murmurs/gallops/rubs, well-healed surgical incision wrapped in clean sterile dressing without any obvious drainage Resp - CTA bilaterally w/o wheezing/rhochi/crackles GI - soft, nontender, nondistended, bowel sounds present Neuro - Awake and alert, CN II - XII grossly intact Extremities - no edema, pulses intact Current Medications: Current Medications Sig/Parveen Start time Last Medication Dose Route Stop Time Status Admin Acetaminophen 500 MG Q4-6 PRN PRN 12/04 1500 DCD 12/04 PO 2118 Acetaminophen/ 15 ML Q6P PRN 12/04 2230 DCD 12/05 Hydrocodone Bitart PO 0531 Al Hydroxide/Mg 30 ML Q4-6 PRN PRN 12/04 1615 DCD 12/04 Hydroxide PO 1621 Albuterol Sulfate 3 ML EVERY 4 HRS/AWAKE 12/05 1200 DCD 12/05 INH 1209 Albuterol Sulfate 3 ML Q4 12/03 2200 DC 12/05 INH 0030 Docusate Sodium 100 MG BID 12/04 2200 DC PO Docusate Sodium 100 MG BID 12/04 2200 DCD 12/05 PO 0909 Docusate Sodium 100 MG BID 12/03 2200 DC 12/04 PO 0917 Heparin Sodium 5,000 UNIT Q8 12/03 2200 DCD 12/05 (Porcine) SC 0534 Hydromorphone HCl 1 MG Q2-3 HRS NEEDED.. 12/04 1500 DC IV Hydromorphone HCl 50 MG Q24H PRN 12/03 1515 DC 12/03 Sodium Chloride 45 ML IV 1836 Ketorolac 15 MG Q8P PRN 12/03 2215 DCD 12/04 Tromethamine IV 1637 Lorazepam 0.5 MG Q6 PRN 12/04 0915 DCD 12/04 PO 12/11 0914 1042 Nicotine 7 MG DAILY 12/04 1000 DCD 12/05 TOP 0910 Omeprazole 20 MG DAILY AC 12/04 0700 DCD 12/05 PO 0534 Ondansetron HCl 4 MG .STK-MED ONE 12/04 1608 DC IM 12/04 1609 Ondansetron HCl 4 MG Q6P PRN 12/03 1500 DCD 12/04 IV 1611 Oxycodone/ 1 TAB Q4-6 PRN PRN 12/04 1500 DC Acetaminophen PO Oxycodone/ 2 TAB Q4-6 PRN PRN 12/04 1500 DC Acetaminophen PO Sodium Chloride 1,000 ML Q13H 12/03 1500 DC 12/03 IV 1835 Impression/Plan Impression/Problem List Impression: Patient continues to feel well after her surgery and subsequent chest tube placement that was removed yesterday afternoon. She reports no further/ increased respiratory issues and is saturating adequately on room air. Chest x- ray obtained today was within normal limits. She is to be discharged today per the recommendations of the surgical team. Pathology will need to be follow up as an outpatient. Problem List: -Lung mass s/p resection with chest tube placement Respiratory: Patient admited for surgical resection of a right upper/lower lobe mass that was suspicious for adenocarcinoma. She was transfered to the ICU for closer monitor and maintenance of the chest tube that was placed. -Incentive spirometry -TRC neb -Chest tube removed 12/04/16 -GS following Diet - Regular Diet DVT PPx - Heparin SC Code Status - FULL CODE Problem List: 1. Lung nodules Pain Ratin Tomorrow's Labs & Rationales: None Plan DVT/Prophylaxis: pharmacological, SC heparin Code Status: Full Code
--- NOTE | 2016-12-10 16:31 | Surgical Discharge Summary ---
Visit Information Visit Dates Admission Date: 12/03/16 Discharge Date: 12/05/16 History of Present Illness Chief Complaint: Patient presents with right upper and right lower lobe lung cancers for surgical resection. Medical History Blood Transfusion Hx: No EENT: BILATERAL HEARING AID Respiratory: LUNG NODULES Gastrointestinal: GERD, CHOLELETIHASIS Psychiatric: anxiety, depression History of MRSA: No History of VRE: No History of CDIFF: No Isolation History: Standard Surgical History Pertinent Surgical History: RIGHT FATTY TUMOR REMOVED FROM RIGHT BREAST Family History Relations & Conditions If Any: FATHER FH: throat cancer Psychosocial History Where Do You Live? Home Who Do You Live With? Family Services at Home: None What is Your Primary Language? Frisian Review of Systems: Negative Hospital Course Course Attending Physician: MICHAEL ALVES,ADRIANO Brown JR Primary Care Physician: NICOLE ALVES,[facility] Course: She underwent open resection of her right upper and right lower lobe lung nodules. Final pathology is pending at the time of dictation. She was admitted to the intensive care unit postoperatively. On postoperative day #1 her chest tube was removed. She was doing well and ambulating was discharged home on postoperative day #2. Allergies: Coded Allergies: Penicillins (HIVES 11/14/16) Disposition Summary Disposition Principal Diagnosis: Right upper lobe lung cancer. Right lower lobe lung cancer. Additional Diagnosis: None Discharge Disposition: home or self care Discharge Instructions General Discharge Information Code Status: Full Code Patient's Diet: Usual Patient's Activity: As tolerated Follow-Up Instructions/Appts: 2 weeks in the office with a chest x-ray Medications at Discharge Discharge Medications: Continue taking these medications: Esomeprazole (Nexium) 40 MG CAPSULE.DR 1 Capsule ORAL DAILY Start taking the following new medications: Hydrocodone/Acetaminophen (Hydrocodon-Acetamin 7.5-325/15) 7.5 MG-325 MG/15 ML ( 15 ML) SOLUTION 15 Milliliters ORAL EVERY SIX HOURS NEEDED as needed for PAIN Qty = 200 No Refills Comments: Last Taken:12/05/16 Time:0531 Docusate Sodium (Docusate Sodium) 100 MG CAPSULE 100 Milligram ORAL TWICE DAILY Qty = 14 No Refills Comments: Last Taken:12/05/16 Time:0909
== END 2016-12-05 12:48 | DRG 164 ==
LOC: ENRESERVTM → ENRESERVDT → SDA 12-03 01:55 → CRI 12-03 01:55
PROVIDERS: Physician Assistant; Physician Assistant Surgical; ADMIT Thoracic Surgery (Cardiothoracic Vascular Surgery)
DX: C34.11 Malignant neoplasm of upper lobe, right bronchus or lung (principal); C34.31 Malignant neoplasm of lower lobe, right bronchus or lung; Z72.0 Tobacco use; K21.9 Gastro-esophageal reflux disease without esophagitis; E78.5 Hyperlipidemia, unspecified; F41.9 Anxiety disorder, unspecified
CPT/HCPCS: CCU; 36415; 82436; 87086; 88305; 88307; 97110-GO; 97116-GO; 97161-GP; 97530-GO; C9290; J0690; J1100; J1170; J1644; J2405

== ENCOUNTER 2016-12-12 14:09 | Emergency (ER) | payer OTHER, MEDICARE ==
[~2016-12-12] VITALS: Ht 149.9 cm; Wt 56.7 kg
[~2016-12-12 14:09] MED LIST: DOCUSATE SODIU100 M3 PO; HYDROCODON-ACET15 ML PO; LEXAPRO10 M1 PO; NEXIUM40 M1 PO; VITAMIN D1000 UNIT PO; WELLBUTRIN XL300 M2 PO; vitamin b12 PO
[2016-12-12 14:36] LABS: ABSOLUTE BASOPHIL COUNT 0 /CUMM (0.0-0.2); ABSOLUTE EOSINOPHIL COUNT 0 /CUMM (0.0-0.7); ABSOLUTE GRANULOCYTE CT 4.7 /CUMM (1.4-6.5); ABSOLUTE LYMPH COUNT 1.1 /CUMM (1.2-3.4); ABSOLUTE MONOCYTE COUNT 0.5 /CUMM (0.10-0.60); BASOPHIL % 0.7 % (0.0-2.0); EOSINOPHIL % 0.5 % (0-5); GRANULOCYTE % 73.6 % (42.2-75.2); HEMATOCRIT 36.5 % (37-47); MEAN CORPUSCULAR HGB 29.6 PG (27.0-31.0); MEAN CORPUSCULAR VOLUME 87.1 FL (81.0-99.0); MEAN PLATELET VOLUME 7.8 FL (7.4-10.4); PLATELET COUNT 466 /CUMM (130-400); RBC DISTRIBUTION WIDTH 14.2 % (11.5-14.5); RED BLOOD CELL CT 4.19 /CUMM (4.20-5.40); WHITE BLOOD CELL COUNT 6.3 /CUMM (4.8-10.8)
--- NOTE | 2016-12-12 15:17 | ED GI/GU/ABDOMINAL COMPLAINT ---
See Addendum History of Present Illness General Chief Complaint: Abdominal Pain/Flank Pain Stated Complaint: CONSTPATION; ABD PAIN Source: patient, family, old records Exam Limitations: no limitations Vital Signs & Intake/Output Vital Signs & Intake/Output Vital Signs Date Time Temp Pulse Resp B/P Pulse O2 O2 Flow FiO2 Ox Delivery Rate 12/12 1830 98.9 92 18 122/76 96 Room Air 12/12 1527 Room Air 12/12 1415 99.2 94 18 120/73 95 Room Air Room Air Allergies Coded Allergies: Penicillins (HIVES 11/14/16) Reconcile Medications Docusate Sodium 100 MG CAPSULE 100 MG PO BID constipation Esomeprazole (Nexium) 40 MG CAPSULE.DR 1 CAP PO DAILY reflux (Reported) Hydrocodone/Acetaminophen (Hydrocodon-Acetamin 7.5-325/15) 7.5 MG-325 MG/15 ML ( 15 ML) SOLUTION 15 ML PO Q6P PRN PAIN Magnesium Citrate (Citrate Of Magnesia) 300 ML SOLUTION 296 ML PO ONCE CONSTIPATION Sulfamethoxazole/Trimethoprim (Bactrim 400-80 MG Tablet) 400 MG-80 MG TABLET 1 TAB PO BID UTI Triage Note: TRIAGE: 71 Y/O FEMALE PRESENTS S/P SURGERY ON 12/03. HAS NOT HAD BOWEL MOVEMENT IN 11 DAYS. REPORTS "EXCRUTIATING RECTAL PAIN". Triage Nurses Notes Reviewed? yes ? N Is pt currently ? No Onset: Gradual Duration: getting worse Timing: recent history Quality/Severity: fullness, severe Severity Numbers: 10 Location: generalized abdomen Radiation: no radiation HPI: Patient is a 71-year-old female who recently was admitted to [facility] on November 02 for concerns of lung mass in which that day patient receive thoracotomy and bilateral lobectomy in which she was indicated through old records the patient had concerns of adenocarcinoma patient also had resection of mediastinal lymph node. This was performed by cardiovascular surgeon Dr. Villareal. Patient does state that since her discharge in 2 days prior to admission that she has had no "real" bowel movements for 11 days. She has had minimal loose watery stool production with no blood or no melena noted. Patient has been taking hydrocodone 7.5 mg for her pain which she discontinued yesterday due to concerns of constipation. Patient has been taking stool softeners and laxatives and tried a suppository enema by home nursing which did not produce significant bowel production. Patient is complaining of gradual onset of abdominal distention and pain. Patient is able tolerate by mouth no nausea or vomiting denies any fever chills chest pain shortness of breath cough arm pain jaw pain leg swelling hemoptysis. (KAREN GUERRA) Past History Travel History Traveled to [place] past 21 day No Medical History Any Pertinent Medical History? 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 No (KAREN UGERRA) Review of Systems Review of Systems Constitutional: Reports: no symptoms. EENTM: Reports: no symptoms. Respiratory: Reports: no symptoms. Cardiovascular: Reports: no symptoms. GI: Reports: see HPI, abdominal pain, constipation, distention. Genitourinary: Reports: no symptoms. Musculoskeletal: Reports: no symptoms. Skin: Reports: no symptoms. Neurological/Psychological: Reports: no symptoms. Hematologic/Endocrine: Reports: no symptoms. Immunologic/Allergic: Reports: no symptoms. All Other Systems: Reviewed and Negative (KAREN GUERRA) Physical Exam Physical Exam General Appearance: mild distress Gastrointestinal: tenderness Comments: HEENT: Normal EENT exam, . Neck: Supple, no lymphadenopathy, normal range of motion without pain or tenderness Back: Nontender, no CVA tenderness. Cardiovascular: Regular rate and rhythms no murmurs rubs or gallops, normal JVP Respiratory: Chest nontender. No respiratory distress.breath sounds clear to auscultation bilaterally Extremity: No edema, no calf tenderness to palpation, normal and equal pulses. Neuro: Alert oriented x3, motor sensory normal, Skin: No appreciable rash on exposed skin, skin is warm and dry. Psych: Mood and affect is normal, memory and judgment is normal. Core Measures ACS in differential dx? No Severe Sepsis Present: No Septic Shock Present: No (KAREN GUERRA) Progress Differential Diagnosis: AAA, AMI, appendicitis, biliary colic, bowel obstruction , colon cancer, cholecystitis, diverticulitis, endometritis, esophageal varices, gastritis, hepatitis, hernia, hemorrhoids, ischemic bowel, inflamm bowel dis, kidney stone, María-Verónica tear, ovarian cyst, ovarian torsion, pancreatitis, PID/cervicitis, peptic ulcer, PUD/GERD, perforated viscous, SBO, UTI/pyelo Plan of Care: Orders Procedure Date/time Status Enema 12/12 1809 Active Enema 12/12 1504 Active URINALYSIS 12/12 1418 Complete LACTIC ACID 12/12 141 Complete COMPREHENSIVE METABOLIC PANEL 12/12 1418 Complete CBC WITHOUT DIFFERENTIAL 12/12 141 Complete Laboratory Tests 12/12/16 1639: Urine Color YEL, Urine Clarity CLEAR, Urine pH 6.0, Ur Specific [place] <= 1.005 , Urine Protein NEG, Urine Ketones NEG, Urine Nitrite NEG, Urine Bilirubin NEG, Urine Urobilinogen 0.2, Ur Leukocyte Esterase TRACE H, Ur Microscopic SEDIMENT EXAMINED, Urine RBC RARE, Urine WBC 1-3 H, Ur Epithelial Cells RARE, Urine Hemoglobin NEG, Urine Glucose NEG 12/12/16 1426: Anion Gap 9, Estimated GFR > 60, BUN/Creatinine Ratio 13.3, Glucose 111 H, Lactic Acid 0.9, Calcium 9.8, Total Bilirubin 0.7, AST 43 H, ALT 96 H, Alkaline Phosphatase 151 H, Total Protein 6.4, Albumin 3.6, Globulin 2.8, Albumin/Globulin Ratio 1.3, CBC w Diff NO MAN DIFF REQ, RBC 4.19 L, MCV 87.1, MCH 29.6, RDW 14.2, MPV 7.8, Gran % 73.6, Lymphocytes % 17.1 L, Monocytes % 8.1 , Eosinophils % 0.5, Basophils % 0.7, Absolute Granulocytes 4.7, Absolute Lymphocytes 1.1 L, Absolute Monocytes 0.5, Absolute Eosinophils 0, Absolute Basophils 0, PUBS MCHC 34.0 Due to history of present was and exam findings or suspicion of opiate-induced constipation. Blood work was unremarkable CT scan showed concerns of moderate stool in which patient initially was given an enema however stool production was noted in which after multiple attempts of disimpaction of stool patient had significant improvement of abdominal pain and copious amounts of stool was disimpacted. Patient was strongly advised to discontinue narcotics and only take if needed and to follow-up with GI if symptoms still persist and to take stool softener and accidents to improve symptoms. Upon discharge patient looks well no apparent distress and will comply with discharge instructions and had no questions. Discussed patient with Dr. Davidson who agrees with disposition and plan (DERICK HERRING,KAREN) Diagnostic Imaging: Viewed by Me: CT Scan. Radiology Impression: SEE COMMENTS Initial ED EKG: none Comments: PATIENT: BREANNA ESTRADA PRESENT AGE: 71 PATIENT ACCOUNT NO: [id number] : 47 LOCATION: [facility] ORDERING PHYSICIAN: KAREN HERRING SERVICE DATE: 12/12/168111 EXAM TYPE: CAT - CT ABD & PELVIS W/O IV CONTRAS EXAMINATION: CT ABDOMEN AND PELVIS WITHOUT CONTRAST CLINICAL INFORMATION: Constipation. Abdominal pain. Evaluate for small bowel obstruction. COMPARISON: PET/CT scan dated 08/25/2016. TECHNIQUE: Multidetector volumetric imaging was performed from the superior aspect of the liver through the pubic symphysis. Sagittal and coronal reformatted images were obtained on the technologist workstation. DLP: 247.73 mGy-cm. FINDINGS: LUNG BASES: There is a small simple appearing right-sided pleural effusion with minimal associated subsegmental atelectasis in the right lung base. A small linear pleural calcification is seen posterior medially within the right lower lobe. No left-sided effusion is seen. Minimal subsegmental atelectasis in the left lung base is noted. There is a small retrocardiac hiatal hernia. LIVER, GALLBLADDER, AND BILIARY TREE: The liver is normal in size, shape, and attenuation. No focal hepatic lesion on noncontrast imaging. No biliary ductal dilatation is present. Several calcified gallstones are seen within the gallbladder. The gallbladder is unremarkable with no evidence of gallbladder wall thickening or obvious pericholecystic inflammatory changes. PANCREAS, SPLEEN: Unremarkable on noncontrast imaging. ADRENAL GLANDS: There is diffuse hypertrophy of the left adrenal gland without discrete mass. Minimal hypertrophy of the right adrenal gland is seen without discrete mass. KIDNEYS AND URETERS: The kidneys are normal in size, shape, and attenuation. No hydronephrosis, hydroureter, or calculi seen. No perinephric stranding. BLADDER: Unremarkable. GASTROINTESTINAL TRACT: Scattered colonic diverticula are seen with no evidence of acute diverticulitis. Fair amount of stool is seen scattered throughout the colon and rectum. There is slight thickening of the rectal wall and mild surrounding edema and free fluid is seen extending into the presacral space. Findings may be related to stercoral colitis. The small and large bowel are otherwise unremarkable. No evidence of small bowel obstruction is seen. The appendix is not discretely visualized, but no focal inflammatory process is seen in the right lower quadrant. ABDOMINAL WALL: There is a tiny fat-containing umbilical hernia. LYMPH NODES, VASCULAR: No abdominal or pelvic adenopathy is seen. Mild atherosclerotic calcifications of the aorta and bifurcation are noted. PELVIC VISCERA: Unremarkable. OSSEOUS STRUCTURES: Diffuse osteopenia. Superior endplate compression of the T11 vertebral body is seen with 40% reduction in vertebral body height, similar to prior PET/CT scan. IMPRESSION: 1. No evidence of small bowel obstruction. 2. Moderate stool scattered throughout the colon with findings in the rectum and lower pelvis suspicious for stercoral colitis. Close clinical correlation requested. 3. Mild colonic diverticulosis with no evidence of acute diverticulitis. 4. Hypertrophy of the adrenal glands, left greater than right without discrete mass. 5. Cholelithiasis with no evidence of acute cholecystitis. 6. Small right-sided pleural effusion, new from prior PET/CT scan from 08/25/2016. Scattered bibasilar subsegmental atelectasis. (DERICK HERRING,KAREN) Departure Departure Disposition: HOME OR SELF CARE Condition: Stable Clinical Impression Primary Impression: Constipation Secondary Impressions: Abdominal pain Referrals: SAIMA ALVES,GAYLE RIVERA MD,RAHEEM (PCP/Family) Additional Instructions: As discuss IF symptoms still persist please follow-up with support manager Dr. Astudillo for further evaluation treatment. Continue taking [id number] stool softener and begin the prescription of magnesium citrate to improve your bowel movements. If symptoms worsen return to emergency room. Follow-up with your established surgeon as directed. If you can the narcotic medications may be causing her symptoms please avoid this and take only if absolutely needed. Begin [id number] Tylenol for pain and inflammation. Begin drinking plenty of water Begin the prescription of Bactrim as directed for the full course Departure Forms: Customer Survey General Discharge Information Prescriptions: Current Visit Scripts Magnesium Citrate (Citrate Of Magnesia) 296 ML PO ONCE #296 ML Ref 1 Sulfamethoxazole/Trimethoprim (Bactrim 400-80 MG Tablet) 1 TAB PO BID #14 TAB (KAREN GUERRA) PA/TABLE WORKER Co-Sign Statement Statement: ED Attending supervision documentation- [X] I saw and evaluated the patient. I have also reviewed all the pertinent lab results and diagnostic results. I agree with the findings and the plan of care as documented in the PA's/TABLE WORKER's documentation. [X] I have reviewed the ED Record and agree with the PA's/TABLE WORKER's documentation. [] Additions or exceptions (if any) to the PAs/TABLE WORKER's note and plan are summarized below: [] (CINTHYA ALVES,EVELYN Nur)
--- NOTE | 2016-12-12 17:09 | CT SCAN REPORT ---
EXAMINATION: CT ABDOMEN AND PELVIS WITHOUT CONTRAST CLINICAL INFORMATION: Constipation. Abdominal pain. Evaluate for small bowel obstruction. COMPARISON: PET/CT scan dated 08/25/2016. TECHNIQUE: Multidetector volumetric imaging was performed from the superior aspect of the liver through the pubic symphysis. Sagittal and coronal reformatted images were obtained on the technologist workstation. DLP: 247.73 mGy-cm. FINDINGS: LUNG BASES: There is a small simple appearing right-sided pleural effusion with minimal associated subsegmental atelectasis in the right lung base. A small linear pleural calcification is seen posterior medially within the right lower lobe. No left-sided effusion is seen. Minimal subsegmental atelectasis in the left lung base is noted. There is a small retrocardiac hiatal hernia. LIVER, GALLBLADDER, AND BILIARY TREE: The liver is normal in size, shape, and attenuation. No focal hepatic lesion on noncontrast imaging. No biliary ductal dilatation is present. Several calcified gallstones are seen within the gallbladder. The gallbladder is unremarkable with no evidence of gallbladder wall thickening or obvious pericholecystic inflammatory changes. PANCREAS, SPLEEN: Unremarkable on noncontrast imaging. ADRENAL GLANDS: There is diffuse hypertrophy of the left adrenal gland without discrete mass. Minimal hypertrophy of the right adrenal gland is seen without discrete mass. KIDNEYS AND URETERS: The kidneys are normal in size, shape, and attenuation. No hydronephrosis, hydroureter, or calculi seen. No perinephric stranding. BLADDER: Unremarkable. GASTROINTESTINAL TRACT: Scattered colonic diverticula are seen with no evidence of acute diverticulitis. Fair amount of stool is seen scattered throughout the colon and rectum. There is slight thickening of the rectal wall and mild surrounding edema and free fluid is seen extending into the presacral space. Findings may be related to stercoral colitis. The small and large bowel are otherwise unremarkable. No evidence of small bowel obstruction is seen. The appendix is not discretely visualized, but no focal inflammatory process is seen in the right lower quadrant. ABDOMINAL WALL: There is a tiny fat-containing umbilical hernia. LYMPH NODES, VASCULAR: No abdominal or pelvic adenopathy is seen. Mild atherosclerotic calcifications of the aorta and bifurcation are noted. PELVIC VISCERA: Unremarkable. OSSEOUS STRUCTURES: Diffuse osteopenia. Superior endplate compression of the T11 vertebral body is seen with 40% reduction in vertebral body height, similar to prior PET/CT scan. IMPRESSION: 1. No evidence of small bowel obstruction. 2. Moderate stool scattered throughout the colon with findings in the rectum and lower pelvis suspicious for stercoral colitis. Close clinical correlation requested. 3. Mild colonic diverticulosis with no evidence of acute diverticulitis. 4. Hypertrophy of the adrenal glands, left greater than right without discrete mass. 5. Cholelithiasis with no evidence of acute cholecystitis. 6. Small right-sided pleural effusion, new from prior PET/CT scan from 08/25/2016. Scattered bibasilar subsegmental atelectasis.
[2016-12-12] MEDS ORDERED: CITRATE OF MAG300 ML PO (18:11)
[2016-12-12] MEDS ORDERED: BACTRIM 400-801 EACH PO (18:13)
[2016-12-12 18:30] VITALS: BP 122/76
== END 2016-12-12 18:31 ==
LOC: ERH 14:09
PROVIDERS: Emergency Medicine
DX: K59.00 Constipation, unspecified (principal)
CPT/HCPCS: 74176; 81001